=== PATIENT | male | born 1955 | race African-American/Black ===

== ENCOUNTER 2020-04-20 10:27 | Observation (INO) | payer OTHER ==
[2020-04-20] MEDS ORDERED: Acetaminophen 325 MG TAB PO PRN (13:50)
[2020-04-20 14:02] VITALS: BMI 22.8
[2020-04-20] MEDS ORDERED: ALPRAZolam 0.25 MG TAB PO PRN (15:29)
[2020-04-20] MEDS ORDERED: traZODone HCl 50 MG TAB PO PRN (15:45)
[2020-04-20] MEDS ORDERED: Albuterol 200 PUFF (6.7GM INHALER) INH PRN (15:45)
--- NOTE | 2020-04-20 16:29 | PDOC.HHP ---
Hospitalist HPI - History of Present Illness Dizziness History of Present Illness: Patient presents to the ED today after an episode of dizziness that occurred this morning. Patient is a poor historian, inconsistent story. First stated he passed out, then states he did not faint and did not have a fall. Endorses he had a "spinning" sensation that lasted only 5 minutes and resolved quickly. He apparently got up to make a cup of coffee and denies any gait disturbances. Did not experience any recurring symptoms since then. He has had no chest pain or sob. Denies any urinary symptoms. He lives by himself and is fully independent states he walks independently at home. He states the reason he came in was because he told his sister about the episode he had and she opted to bring him in to the ED for further work-up. ED COURSE: Patient initially seen at [facility]. Had work-up done there including a chest x-ray that showed no acute intrathoracic findings. CT of the head was done showing no significant intracranial findings. Per ED notes and pelvis in the ER he had symptoms concerning for presyncopal episode. EKG was done showing a normal sinus rhythm with a heart of 68. He had no ST changes or T wave abnormalities. Patient was given aspirin 324 mg p.o. Urinalysis was done and unremarkable. Laboratory studies done as well and also unremarkable. He was referred here for further work-up due to concern for possible TIA/CVA. PAST MEDICAL HISTORY: Hypertension CAD Anxiety Tobacco user PAST SURGICAL HISTORY: Coronary artery stents x2 SOCIAL HISTORY: Patient lives at home with his mother. He is fully independent. Reports smoking less than a pack a day and reports rare alcohol consumption. Denies any illicit drug use. FAMILY HISTORY: None. ALLERGIES: No known drug allergies. CURRENT MEDICATIONS: Alprazolam 0.25 mg p.o. daily Entresto 49 mg / 50 mg p.o. twice daily Trazodone 100 mg 1 to 2 tablets p.o. at bedtime Rosuvastatin 20 mg p.o. at bedtime Carvedilol 6.25 mg p.o. twice daily Bupropion extended release 150 mg p.o. daily Nifedipine 60 mg p.o. twice daily Aspirin 81 mg p.o. daily Pro-air HFA 90 mcg. Hospitalist ROS - Review of Systems All other systems reviewed; all pertinent +/- noted in HPI/Subj - Exam General - other findings: Temp 97.6, pulse 56, RR 16, O2 sat 90% on room air, BP 129/83 Eye: PERRL Eye - other findings: No nystagmus ENT: normocephalic atraumatic, no oropharyngeal lesions Neck: supple, symmetric, no lymphadenopathy Heart: RRR, no murmur, no gallops, no rubs, normal peripheral pulses Respiratory: CTAB, normal chest expansion, no tachypnea Gastrointestinal: soft, non-tender, non-distended, normal bowel sounds, no guarding, no rigidity Extremities: no edema Skin: normal turgor, no lesions Neurological: cranial nerve grossly intact, normal sensation to touch Neurological - other findings: hyperactive reflexes Musculoskeletal: normal tone, normal strength, no muscle wasting Psychiatric: normal affect, normal behavior, A&O x 3 Hospitalist Results - Labs Lab results: Troponin I Less than 0.010 ng/mL (< 0.028) 04/20/20 11:13 - Radiology Interpretation CT scan - head Status: report reviewed by ia Hospitalist H&P A/P - Problem (1) Pre-syncope Status: Acute (2) Bradycardia Code(s): R00.1 - BRADYCARDIA, UNSPECIFIED Status: Acute (3) Hypokalemia Code(s): E87.6 - HYPOKALEMIA Status: Acute (4) CAD (coronary artery disease) Code(s): I25.10 - ATHSCL HEART DISEASE OF [place] CORONARY ARTERY W/O ANG PCTRS Status: Chronic (5) Hypertension Code(s): I10 - ESSENTIAL (PRIMARY) HYPERTENSION Status: Chronic (6) Anxiety Code(s): F41.9 - ANXIETY DISORDER, UNSPECIFIED Status: Chronic - Plan Plan: No indication for MRI/Neuro as per discussion with Dr. Álvarez, appears to have had a presyncopal episode rather than TIA/CVA. Echo ordered. Cardiac monitoring. Orthostatic BPs. Consider cardiology input re: meds add-on Mg+ UDS Repeat labs in AM GI prophylaxis DVT Prophylaxis. PT consulted to ensure mobility is adequate
[2020-04-20] MEDS ORDERED: Nicotine 7 MG PATCH TD SCH (17:00)
[2020-04-20 18:12] LABS: SARS-CoV-2 MS2 Positive; SARS-CoV-2 N Gene Negative; SARS-CoV-2 S Gene Negative; SARS-CoV-2 by NAA Not Detected (NotDetected); SARS-CoV-2 orf1ab Negative
[2020-04-20 18:34] LABS: Amphetamine Not Detected (NotDetected); Barbiturates Screen Not Detected (NotDetected); Benzodiazepine Screen Detected (NotDetected); Cocaine Metabolite Screen Not Detected (NotDetected); Medtox Control Line Valid? VALID (VALID); Medtox Reader # READER 4; Methadone Not Detected (NotDetected); Methamphetamine Not Detected (NotDetected); Opiate Screen Not Detected (NotDetected); Oxycodone Screen Not Detected (NotDetected); Phencyclidine (PCP) Not Detected (NotDetected); THC/Cannabinoid Screen Not Detected (NotDetected); Tricyclic Screen Not Detected (NotDetected)
--- NOTE | 2020-04-20 18:43 | PDOC.EVN ---
Event Note - Event Note Event Note: Evaluated patient. Reports feeling "off " for a few minutes today. Did not pass out. No weakness/numbness or neurological symptoms He has sinus bradycardia while here in the hospital, was 60 and then dropped to 40 CV: RRR, no murmurs, rubs, gallops Neuro exam: normal Lungs: CTAB Abd: + BS, soft, nontender, nondistended Ext: no edema Impression: - presyncope - hypokalemia - orthostatic hypotension Plan: - check orthostatics - monitor on tele for bradycardia. Hold coreg. - replace potassium - consult walking program
[2020-04-20] MEDS ORDERED: Potassium Chloride 20 MEQ TAB PO SCH (18:45)
[2020-04-20] MEDS: NIFEdipine XL 60 MG TAB PO SCH (20:07)
[2020-04-20] MEDS: Sacubitril 49 MG/Valsartan 51 MG TABLET PO SCH (20:08)
[2020-04-20] MEDS: Famotidine 20 MG TAB PO SCH (20:08)
[2020-04-20] MEDS ORDERED: Atorvastatin Calcium 40 MG TAB PO SCH (21:00)
[2020-04-20] MEDS ORDERED: Carvedilol 6.25 MG TAB PO SCH (21:00)
[2020-04-21 05:05] LABS: #Basophils 0.1 thou/uL (0.0-0.2); #Eosinphils 0.1 thou/uL (0.0-0.7); #Lymphocytes 2.4 thou/uL (1.20-3.40); #Monocytes 0.5 thou/uL (0.11-0.59); #Neutrophils 2.4 thou/uL (1.40-6.50); %Basophils 1.5 % (0.0-1.0); %Eosinophils 1.6 % (0.0-10.0); %Lymphocytes 44.8 % (21.0-51.0); %Monocytes 8.8 % (0.0-10.0); %Neutrophils 43.4 % (42.0-75.0); Mean Corpuscular HGB CONC 31.5 g/dL (32.0-36.0); Mean Corpuscular Hemoglobin 27.6 pg (27.0-31.0); Mean Corpuscular Volume 87.7 fL (78.0-98.0); Mean Platelet Volume 7.4 fL (7.4-10.4); Platelet Count 246 thou/uL (130-400); RBC Distribution Width 14.3 % (11.5-14.5); Red Blood Cell (RBC) Count 5.45 mill/uL (4.70-6.10); White Blood Cell (WBC) Count 5.4 thou/uL (4.8-10.8)
[2020-04-21 05:18] LABS: Anion Gap 12 mmol/L (10-20); BUN (Urea Nitrogen) 13 mg/dL (8.4-25.7); Calc. Creatinine Clearance 70 mL/min (70-130); Calcium 9.1 mg/dL (7.8-10.44); Carbon Dioxide 26 mmol/L (23-31); Cardiac Risk 2.3 (Less than 4.5); Chloride 107 mmol/L (98-107); Cholesterol 129 mg/dl (< 200 Desired); Estimated GFR-MDRD Greater than 90; Glucose 109 mg/dL (80-115); HDL Cholesterol 57 mg/dL (>60 Neg Risk); LDL Cholesterol, Calculated 53 mg/dL; Potassium 3.5 mmol/L (3.5-5.1); Sodium 141 mmol/L (136-145); Triglycerides 96 mg/dL (Less than 150)
[2020-04-21 07:33] VITALS: TEMP 97.8
[2020-04-21] MEDS: NIFEdipine XL 60 MG TAB PO SCH (08:34)
[2020-04-21] MEDS: Sacubitril 49 MG/Valsartan 51 MG TABLET PO SCH (08:35)
[2020-04-21] MEDS: Famotidine 20 MG TAB PO SCH (08:35)
[2020-04-21] MEDS ORDERED: Bupropion 150 MG XL TAB PO SCH (09:00)
[2020-04-21] MEDS ORDERED: Aspirin 325 mg Enteric Coated Tablet PO SCH (09:00)
[2020-04-21 09:43] VITALS: BP 132/80
--- NOTE | 2020-04-21 12:08 | PDOC.EVN ---
Event Note - Event Note Event Note: Evaluated at time of discharge. Patient denies any symptoms. He reported significant improvement in chest discomfort with pepcid and wanted some on discharge. No chest pain, palpitations, dizziness. He was ambulating without difficulty Vitals: stable General: patient alert, awake, oriented times three CV: RRR, no murmurs, rubs, gallops Lungs: CTAB Abdomen: + BS, soft, noontender, nondistended Extremities: no edema neuro: CN II- XII intact. 5/5 strength in upper and lower extremites. SEnsation intact in all four extremities Lab: stable Plan: - will d/c home. Hold coreg on d/c due to bradycardia. F/u with Dr. Salazar in one month, he was informed. Pepcid prescribed on dc
--- NOTE | 2020-04-22 19:35 | DIS ---
DATE OF ADMISSION: 04/20/2020 DATE OF DISCHARGE: 04/21/2020 PRIMARY CARE PHYSICIAN: Dr. Deshpande. DISPOSITION: Discharged home. CONSULTING PHYSICIANS: None. PROCEDURES: None. DISCHARGE MEDICATIONS: 1. Pepcid 20 mg p.o. b.i.d., quantity 60, new medication. 2. Nicotine 7 mg TD q.24 hours, quantity 30 patches. 3. Discontinue Coreg 6.25 mg p.o. b.i.d., to be discussed further with his extractor tender raw stock Dr. Salazar. 4. Otherwise, advised to resume all other home medications. ALLERGIES: NO KNOWN DRUG ALLERGIES. DIET: Heart healthy. ACTIVITY: As tolerated. CODE STATUS: Full. HOSPITAL COURSE: The patient admitted to the emergency department after an episode of lightheadedness that lasted about 5 minutes while he was home early hours in the morning of April 20, 2020. His sister was concerned, therefore, prompted him to come into the emergency department for further evaluation. The patient had orthostatic blood pressures done while he was here and they were unremarkable at time of discharge after receiving IV hydration. Initially, he was noted to have a supine blood pressure of 120/75, sitting 132/85, that then dropped to 105/80 upon standing. The patient also noted to be bradycardic. Therefore, his Coreg was discontinued. He remained asymptomatic throughout his hospital stay. Laboratory studies done were unremarkable. He had no signs or symptoms of infection. Had a chest x-ray done at initial presentation that showed no acute thoracic finding. He had a CT of the brain that showed no significant intracranial findings. Echo was done as well showing an EF of 50% to 55% with mild MR, sclerotic aortic valve, and mild TR. He did have E/A flow reversal noted suggestive of diastolic dysfunction. He was noted on exam to have hyperactive reflexes. He underwent a urine drug screen that showed the presence of benzos, otherwise negative. Electrolytes including potassium and magnesium were normal. At the time of discharge, the patient was evaluated and denied any complaints. He had been experiencing indigestion, which improved once he was started on Pepcid and requested this upon discharge. He was ambulating independently without any difficulty. Given negative workup, he was deemed stable for discharge home after he is being seen by Dr. Álvarez. The patient was seen and examined by me as well as Dr. Álvarez on day of discharge. Followup as mentioned with Dr. Deshpande within the next week. Follow up with Dr. Salazar for discussion of cardiac medications. Job ID: [id number]
== END 2020-04-21 12:07 | disposition home or self-care (01) ==
LOC: ERS 10:27 → 2SE 11:34
PROVIDERS: ADMIT Internal Medicine; ATTEND Internal Medicine
DX: R42 Dizziness and giddiness (principal); E87.6 Hypokalemia; I95.1 Orthostatic hypotension; R00.1 Bradycardia, unspecified; R07.89 Other chest pain; I25.10 Atherosclerotic heart disease of native coronary artery without angina pectoris; I10 Essential (primary) hypertension; F41.9 Anxiety disorder, unspecified; F17.210 Nicotine dependence, cigarettes, uncomplicated; Z79.82 Long term (current) use of aspirin; Z79.899 Other long term (current) drug therapy; Z95.5 Presence of coronary angioplasty implant and graft; Z20.828 Contact with and (suspected) exposure to other viral communicable diseases
CPT/HCPCS: 36415; 36416; 80048; 80061; 80306; 83735; 85025; 87635; 93306; 99285; G0378; U0003

== ENCOUNTER 2020-05-08 18:42 | Emergency (ER) | payer OTHER ==
[2020-05-08] MEDS ORDERED: Meclizine HCl 25 MG TAB ONE (19:27)
[2020-05-08 19:40] LABS: #Basophils 0.1 thou/uL (0.0-0.2); #Lymphocytes 2.2 thou/uL (1.20-3.40); #Monocytes 0.6 thou/uL (0.11-0.59); #Neutrophils 8.2 thou/uL (1.40-6.50); %Basophils 0.5 % (0.0-1.0); %Eosinophils 0.1 % (0.0-10.0); %Lymphocytes 19.9 % (21.0-51.0); %Monocytes 5.6 % (0.0-10.0); Bilirubin Negative (Negative); Blood, Urine Negative (Negative); Clarity Turbid (Clear); Glucose, Urine (Dipstick) Normal (Negative); Ketone, Urine Negative (Negative); Leukocyte Negative Leu/uL (Negative); Mean Corpuscular HGB CONC 31.4 g/dL (32.0-36.0); Mean Corpuscular Hemoglobin 27.8 pg (27.0-31.0); Mean Corpuscular Volume 88.5 fL (78.0-98.0); Nitrite Negative (Negative); Platelet Count 323 thou/uL (130-400); Protein, Urine (Dipstick) Negative (Neg-Trace); RBC Distribution Width 14.2 % (11.5-14.5); Red Blood Cell (RBC) Count 5.42 mill/uL (4.70-6.10); Specific Gravity, Urine 1.011 (1.002-1.036); Urobilinogen Normal mg/dL (Less than 2)
--- NOTE | 2020-05-08 19:50 | RAD ---
XR Chest 1 View Portable History: Chest discomfort Comparison: Radiograph April 20, 2020 Findings: Lungs are clear. No pneumothorax. No effusion. Cardiac silhouette and mediastinal contours are within normal limits. No acute osseous abnormality. Impression: No acute intrathoracic abnormality.
[2020-05-08 19:51] LABS: Medtox Reader # READER 1
[2020-05-08 19:52] LABS: Acetaminophen Less than 6.0 mcg/mL (10.0-30.0); Alcohol Less than 10 mg/dL (Less than 10); Amphetamine Not Detected (NotDetected); Barbiturates Screen Not Detected (NotDetected); Benzodiazepine Screen Detected (NotDetected); Cocaine Metabolite Screen Not Detected (NotDetected); Medtox Control Line Valid? VALID (VALID); Methadone Not Detected (NotDetected); Methamphetamine Not Detected (NotDetected); Opiate Screen Not Detected (NotDetected); Oxycodone Screen Not Detected (NotDetected); Phencyclidine (PCP) Not Detected (NotDetected); Salicylate Less than 8.0 mg/dL (15.0-30.0); THC/Cannabinoid Screen Not Detected (NotDetected); Tricyclic Screen Not Detected (NotDetected)
--- NOTE | 2020-05-08 19:58 | CT ---
CT Brain WO Con History: Dizziness Comparison: CT brain April 20, 2020 Findings: No acute hemorrhage or infarct. No midline shift or mass effect. Ventricular size and extra -axial CSF spaces are normal. Calvarium is intact. Paranasal sinuses and mastoids are clear. Impression: No acute intracranial abnormality.
[2020-05-08 20:00] LABS: ALT (SGPT) 35 U/L (8-55); AST (SGOT) 26 U/L (5-34); Albumin 4.4 g/dL (3.4-4.8); Alkaline Phosphatase 70 U/L (40-110); Anion Gap 14 mmol/L (10-20); BUN (Urea Nitrogen) 12 mg/dL (8.4-25.7); Bilirubin, Total 0.2 mg/dL (0.2-1.2); Calc. Creatinine Clearance 0 mL/min (70-130); Calcium 9.4 mg/dL (7.8-10.44); Carbon Dioxide 30 mmol/L (23-31); Chloride 103 mmol/L (98-107); Estimated GFR-MDRD 85; Globulin 2.9 g/dL (2.4-3.5); Glucose 94 mg/dL (80-115); Potassium 3.7 mmol/L (3.5-5.1); Protein, Total 7.3 g/dL (5.8-8.1); Sodium 143 mmol/L (136-145)
== END 2020-05-08 20:43 | disposition home or self-care (01) ==
LOC: ERS 18:42
DX: R42 Dizziness and giddiness (principal); I10 Essential (primary) hypertension; J45.909 Unspecified asthma, uncomplicated; F41.9 Anxiety disorder, unspecified; F17.210 Nicotine dependence, cigarettes, uncomplicated; Z79.82 Long term (current) use of aspirin; Z79.899 Other long term (current) drug therapy
CPT/HCPCS: 36416; 70450; 71045; 80053; 80306; 80307; 81003; 84484; 85025; 93005

== ENCOUNTER 2020-05-28 07:12 | Outpatient (CLI) | payer OTHER ==
[2020-05-29 15:21] LABS: SARS-CoV-2 MS2 Positive; SARS-CoV-2 N Gene Negative; SARS-CoV-2 S Gene Negative; SARS-CoV-2 by NAA Not Detected (NotDetected); SARS-CoV-2 orf1ab Negative
== END 2020-05-28 07:13 | disposition home or self-care (01) ==
LOC: LABBT 07:12
PROVIDERS: ATTEND Internal Medicine Gastroenterology
DX: Z20.828 Contact with and (suspected) exposure to other viral communicable diseases (principal)
CPT/HCPCS: 87635; U0003

== ENCOUNTER 2020-05-31 07:57 | Day surgery (SDC) | payer OTHER ==
[2020-05-28 09:52] VITALS: BMI 20.9
[2020-05-31] MEDS ORDERED: Lidocaine 1% PF 5 ML VIAL ONE (12:05)
[2020-05-31] MEDS ORDERED: PROPOFOL 200 MG/20 ML VIAL ONE (12:05)
--- NOTE | 2020-05-31 15:32 | OP ---
DATE OF PROCEDURE: 05/31/2020 PREPROCEDURE DIAGNOSES: 1. Dysphagia. 2. Weight loss. 3. Family history of colorectal cancer. 4. Severe chronic obstructive pulmonary disease. 5. Heart failure. POSTPROCEDURE DIAGNOSES: 1. Normal esophagogastroduodenoscopy. Empiric dilatation was performed, showed mild destruction of mucosa in the proximal esophagus and may have been some narrowing. 2. Colonoscopy notable for 1 polyp int he hepatic flexure, 7 mm in size, removed by cold snare polypectomy, submitted to Pathology, otherwise diverticulosis coli. RECOMMENDATIONS: 1. Continue pantoprazole daily. 2. Stop metoclopramide daily. 3. Consider repeat colonoscopy in 5 years in regard to family history. 4. Await histopathology. 5. Follow up p.r.n. 6. Weight loss probably is related to COPD and heart disease. We are going to get a CT scan of abdomen and pelvis to make sure there is no abdominal processes causing weight loss since he has pancreatic malignancies as he is a smoker. ANESTHESIA: TIVA. PROCEDURE IN DETAIL: After the patient was informed of the risks, benefits, and possible complications of endoscopy including perforation, bleeding, reaction to medication, and aspiration, informed consent was obtained. The patient was brought to the endoscopy suite where he was sedated in gradual fashion. Once he was comfortable, a bite block was placed inside his orifices. The endoscope was advanced through the esophagus and stomach to the second and third portions of the duodenum and was slowly removed. There was good visualization of the mucosa. The oropharynx, esophagus, stomach, and duodenum all appeared normal. Retroflexed views in the stomach were normal. Empiric dilatation was performed with 54-Polish Gautam dilator. Second look showing some tear of mucosa in the proximal esophagus. The scope was then removed. The patient was returned to the room and the rectal exam was performed, which revealed no abnormalities. The colon was tortuous. There was diverticula throughout the colon. The prep was good. There was a 7-mm polyp in the hepatic flexure, removed by cold snare polypectomy and retrieved and submitted to Pathology. The remainder of the colon was normal. Retroflexed views were normal. Job ID: [id number]
== END 2020-05-31 11:45 | disposition home or self-care (01) ==
LOC: SDC 07:57
PROVIDERS: ATTEND Internal Medicine Gastroenterology
PROC: 0DJ08ZZ Inspection of Upper Intestinal Tract, Via Natural or Artificial Opening Endoscopic (ICD-10-PCS; principal; 2020-05-31)
PROC: 0DBL8ZZ Excision of Transverse Colon, Via Natural or Artificial Opening Endoscopic (ICD-10-PCS; principal; 2020-05-31)
DX: D12.3 Benign neoplasm of transverse colon (principal); K57.30 Diverticulosis of large intestine without perforation or abscess without bleeding; R63.4 Abnormal weight loss; R13.10 Dysphagia, unspecified; J44.9 Chronic obstructive pulmonary disease, unspecified; I11.0 Hypertensive heart disease with heart failure; I50.9 Heart failure, unspecified; F41.9 Anxiety disorder, unspecified; F32.9 Major depressive disorder, single episode, unspecified; F17.200 Nicotine dependence, unspecified, uncomplicated; E78.5 Hyperlipidemia, unspecified; Z68.21 Body mass index [BMI] 21.0-21.9, adult; Z79.899 Other long term (current) drug therapy; Z80.0 Family history of malignant neoplasm of digestive organs
CPT/HCPCS: 88305; J2704

== ENCOUNTER 2020-06-10 07:32 | Outpatient (CLI) | payer OTHER ==
--- NOTE | 2020-06-10 08:25 | CT ---
CT abdomen and pelvis with IV and oral contrast HISTORY: Weight loss. Abdomen pain. Dysphagia. FINDINGS: Lung bases are clear. Lower esophagus has a normal appearance. No evidence of bowel obstruc tion or inflammation. Within nondilated calyces of the right kidney, there are 3 calcifications, each approximately 0.2 cm. There are 2 adjacent at the superior pole and one at the interpolar level. No hydronephrosis. Dystrophic calcifications noted at the inferior aspect of the pancreatic head and uncinate process. N o masses evident. Calcification within the arterial structures. No free air or free fluid. Urinary bladder has normal appearance. Mild degenerative changes lumbar sp ine. IMPRESSION : Pancreatic calcifications indicating chronic pancreatitis. Tiny nonobstructing right renal calculi. Atherosclerosis.
[2020-06-10] MEDS ORDERED: Iopamidol-370 76% 500 ML 1 ML ONE (14:59)
== END 2020-06-10 07:33 | disposition home or self-care (01) ==
LOC: BICCT 07:32
PROVIDERS: ATTEND Internal Medicine Gastroenterology
DX: R63.4 Abnormal weight loss (principal); R13.19 Other dysphagia; K86.1 Other chronic pancreatitis; I70.0 Atherosclerosis of aorta; N20.0 Calculus of kidney
CPT/HCPCS: 74177; Q9967

== ENCOUNTER 2020-08-06 11:40 | Outpatient (CLI) | payer OTHER ==
[2020-08-06 21:36] LABS: SARS-CoV-2 MS2 Positive; SARS-CoV-2 N Gene Negative; SARS-CoV-2 S Gene Negative; SARS-CoV-2 by NAA Not Detected (NotDetected); SARS-CoV-2 orf1ab Negative
== END 2020-08-06 11:41 | disposition home or self-care (01) ==
LOC: LABBT 11:40
PROVIDERS: ATTEND Physician Assistant Medical
DX: R14.2 Eructation (principal); Z20.828 Contact with and (suspected) exposure to other viral communicable diseases
CPT/HCPCS: 87635; U0003

== ENCOUNTER 2020-08-09 09:51 | Outpatient (CLI) | payer OTHER ==
--- NOTE | 2020-08-09 11:14 | RAD ---
XR Barium Swallow Esophagus History: Dysphagia Comparison: None. Findings: Patient was brought to the fluoroscopy suite. All questions were answered. Patient was initially given gas-forming crystals. Next patient was given thick liquid barium. Right secondary peristalsis was normal. No extrinsic mass effect or diverticulum. No mucosal irregula rity. Next patient was given a 13 mm barium tablet which passed with ease. Next patient was put in the DAWSON position and given thin consistency contrast to continuously drink. N o hernia. No reflux. Normal primary and secondary peristalsis. Impression: Normal esophagram. No evidence for stricture, hernia, or significant reflux. Total fluoroscopy time: 0.8 minute
== END 2020-08-09 09:52 | disposition home or self-care (01) ==
LOC: RAD 09:51
PROVIDERS: ATTEND Physician Assistant Medical
DX: R13.10 Dysphagia, unspecified (principal); R14.2 Eructation
CPT/HCPCS: 74220

== ENCOUNTER 2025-07-07 06:23 | Day surgery (SDC) | payer MEDICARE, MEDICAID ==
[2025-07-06 11:41] VITALS: BMI 22.6
[2025-07-07] MEDS ORDERED: PROPOFOL 200 MG/20 ML VIAL ONE (07:54)
== END 2025-07-07 09:15 | disposition home or self-care (01) ==
LOC: SDC 06:23
PROVIDERS: ATTEND Internal Medicine Gastroenterology
PROC: 0DBM8ZZ Excision of Descending Colon, Via Natural or Artificial Opening Endoscopic (ICD-10-PCS; principal; 2025-07-07)
DX: Z12.11 Encounter for screening for malignant neoplasm of colon (principal); D12.4 Benign neoplasm of descending colon; K57.30 Diverticulosis of large intestine without perforation or abscess without bleeding; K21.9 Gastro-esophageal reflux disease without esophagitis; I11.0 Hypertensive heart disease with heart failure; I50.9 Heart failure, unspecified; I25.10 Atherosclerotic heart disease of native coronary artery without angina pectoris; E78.5 Hyperlipidemia, unspecified; J44.9 Chronic obstructive pulmonary disease, unspecified; F32.A Depression, unspecified; F41.9 Anxiety disorder, unspecified; F17.200 Nicotine dependence, unspecified, uncomplicated; Z86.0100 Personal history of colon polyps, unspecified; Z80.0 Family history of malignant neoplasm of digestive organs; Z79.82 Long term (current) use of aspirin; Z79.899 Other long term (current) drug therapy
CPT/HCPCS: 45385; J2704; 88305